=== PATIENT | female | born 1970 | race Caucasian/White ===

== ENCOUNTER 2018-08-08 08:24 | Inpatient (IN) | payer SELFPAY ==
[2018-08-08] MEDS ORDERED: Ibuprofen 800 MG TAB ONE (09:37)
[2018-08-08] MEDS ORDERED: Ondansetron PF 4 MG/2 ML Vial ONE (09:37)
[2018-08-08 10:17] LABS: Bilirubin Negative (Negative); Blood, Urine Large (Negative); Clarity TURBID (Clear); Glucose, Urine (Dipstick) >=1000 mg/dL (Negative); Leukocyte Large (Negative); Nitrite Positive (Negative); Protein, Urine (Dipstick) 30 mg/dL (Neg-Trace); Specific Gravity, Urine 1.011 (1.002-1.036); Urobilinogen 0.2 mg/dL (0.2-1.0)
[2018-08-08 10:18] LABS: Hyaline Casts/LPF 4-6 HYALINE CAST LPF (0-3 Hyaline); Pathc Cast-AUWi Flag 1.57 (0-2.49); Squamous Epithelial 0-3 HPF (0-3)
[2018-08-08 10:24] LABS: Yeast-AUWi Flag 44.5 (0-25.0)
[2018-08-08 10:33] LABS: ALT (SGPT) 13 U/L (8-55); AST (SGOT) 11 U/L (5-34); Alkaline Phosphatase 123 U/L (40-150); Anion Gap 15 mmol/L (10-20); BUN (Urea Nitrogen) 19 mg/dL (7.0-18.7); Bilirubin, Total 0.9 mg/dL (0.2-1.2); Calc. Creatinine Clearance 0 mL/min (70-130); Calcium 9.1 mg/dL (7.8-10.44); Carbon Dioxide 27 mmol/L (22-29); Chloride 92 mmol/L (98-107); Estimated GFR-MDRD 19; Globulin 4.6 g/dL (2.4-3.5); Lipase 22 U/L (8-78); Protein, Total 7.6 g/dL (6.0-8.3); Sodium 131 mmol/L (136-145)
[2018-08-08 10:37] LABS: Hemoglobin 11.6 g/dL (12.0-16.0); Mean Corpuscular HGB CONC 31.8 g/dL (32.0-36.0); Mean Corpuscular Hemoglobin 27.4 pg (27.0-31.0); Mean Corpuscular Volume 86.2 fL (78.0-98.0); Platelet Count 238 thou/uL (130-400); RBC Distribution Width 12.3 % (11.5-14.5); Red Blood Cell (RBC) Count 4.23 mill/uL (4.20-5.40); White Blood Cell (WBC) Count 22.2 thou/uL (4.8-10.8)
[2018-08-08 10:38] LABS: Glucose 586 mg/dL (70-105); Potassium 2.8 mmol/L (3.5-5.1)
[2018-08-08 10:44] LABS: RBC/HPF 0-3 HPF (0-3)
[2018-08-08 10:45] LABS: Bacteria/HPF 4+ HPF (None Seen); Yeast-All Forms None Seen HPF (None Seen)
[2018-08-08] MEDS ORDERED: ISOVUE-370 76%-LOCM 1 ML ONE (10:48)
[2018-08-08 10:53] LABS: Band 18 % (5-11); Eosinophils 1 % (0-10); Lymphocytes 4 % (21-51); MDiff Complete? YES; Neutrophil 77 % (42-75)
--- NOTE | 2018-08-08 10:57 | CT ---
ABDOMEN CT WITH CONTRAST PELVIC CT WITH CONTRAST: Date: 08/08/18 HISTORY: Abdominal pain. Nausea and vomiting. Right upper quadrant pain. COMPARISON: None. FINDINGS: CT ABDOMEN: Lung bases are clear. Heart size is normal. No significant pericardial fluid. Visualized aorta has a normal caliber. No periaortic fat stranding. Intra and extrahepatic portal vein is patent. The liver, spleen, pancreas, and adrenal glands appear to be unremarkable. There is CT evidence of cholelithiasis without evidence of cholecystitis. There are enlarged left periaortic lymph nodes. Kettle Skimmer enlarged left periaortic lymph node me asures 1.3 x 1.1 cm. There is an enlarged aortocaval lymph node measuring 1.0 x 1.4 cm. There is a pe ricaval lymph node that is also enlarged. No gastrohepatic, retrocrural, or periportal lymphadenopathy. No mesenteric mass, lymphadenopathy, free air, or free fluid. There is symmetric enhancement of the kidneys. There is severe bilateral hydronephrosis and hydrouret er. Limited evaluation of the alimentary canal by lack of oral contrast. There is mucosal thickening invo lving proximal jejunal loops, which are slightly prominent. The mid and distal jejunal loops, as well as loops of the ileum, are unremarkable. Normal caliber appendix. Ileocecal junction is normal. Visu alized colon is grossly unremarkable. CT PELVIS: Distended urinary bladder with bladder mucosal prominence. Trace amount of free fluid in the pelvis i s suggested. Uterus is surgically absent. No pelvic mass, lymphadenopathy, or free air. IMPRESSION: 1. Enlarged retroperitoneal lymph nodes as described above. 2. Cholelithiasis without evidence of cholecystitis. 3. Severe bilateral hydronephrosis and hydroureter. 4. Distended urinary bladder with mucosal prominence. Correlate for neoplasm versus cystitis. POS: [facility]
[2018-08-08] MEDS ORDERED: Potassium Chloride 20 MEQ TAB ONE (11:22)
[2018-08-08] MEDS ORDERED: cefTRIAXone\\ROCEPHIN 2 GM VIAL ONE (11:22)
[2018-08-08] MEDS ORDERED: Potassium Chloride 10 MEQ in Premix Bag 1 BAG IVPB SCH (11:45)
[2018-08-08] MEDS ORDERED: Enoxaparin Sodium 60 MG/0.6 ML SYRINGE ONE (12:18)
[2018-08-08] MEDS ORDERED: Dextrose 5% in Water 1,000 ML IV PRN (13:29)
[2018-08-08] MEDS ORDERED: Acetaminophen 325 MG TAB PO PRN (13:29)
[2018-08-08] MEDS ORDERED: Zolpidem Tartrate 5 MG TAB PO PRN (13:29)
[2018-08-08] MEDS ORDERED: Dextrose 50% Abboject 50 ML SYRINGE SLOW IVP PRN (13:29)
[2018-08-08 15:04] VITALS: BMI 33.8
--- NOTE | 2018-08-08 15:55 | HP ---
PRIMARY CARE PROVIDER: Dr. Anna Munson. HISTORY OF PRESENT ILLNESS: The patient presents to the hospital. States she has been sick for a week for awhile 6 weeks plus, started with anorexia and then nausea, then nausea and vomiting off and on for the past 3 weeks. She states her weight is down 20 pounds. She has had fever, chills, and sweats. Also, known with temperatures as high as 103 plus or minus. She has chronic pain in her back, but now has pain in her right abdomen. PAST MEDICAL HISTORY: Pertinent for diabetes mellitus type 2, insulin dependent; hypertension; dyslipidemia; COPD. She had a cervical cancer in 2009 with radical hysterectomy. She has had chemotherapy and radiation therapy. She has had small-bowel obstruction subsequent to that, she has had three C-sections in the past. CURRENT MEDICATIONS: 1. Humalog with meals, long-acting insulin, she does not know the name, but takes 55 units in the morning. 2. She has albuterol nebulizer and albuterol rescue inhaler. 3. She takes Lipitor 20 mg a day. 4. Gabapentin 300 mg twice a day. 5. Losartan 50 mg a day. 6. Metformin 500 mg twice a day. 7. Fluticasone nasal spray as needed. 8. She has angioedema with lisinopril. FAMILY HISTORY: Father of cirrhosis of the liver. Mother and maternal grandmother had coronary artery disease. Her mother and aunts have diabetes mellitus. SOCIAL HISTORY: She is , distantly, no formal separation. She smoked 3 packs a day until the last short while and she has been trying to quit. Drinks no alcohol. Full code status. Mother, Lucretia Hernandez, is next of kin. REVIEW OF SYSTEMS: HEAD: Occasional headaches. Occasional lightheadedness. No fainting. EYES: Blurred vision with high blood sugar. No double vision or flashing lights. EARS, NOSE, AND THROAT: No ear pain or drainage. No nasal bleeding. No trouble swallowing. CARDIAC: Occasional palpitations. No chest pain, dyspnea on exertion, orthopnea, or paroxysmal nocturnal dyspnea. RESPIRATIONS: She does have occasional wheeze and shortness of breath, for which she uses albuterol. No cough. GASTROINTESTINAL: Nausea and vomiting with present illness. Abdominal discomfort on the right with present illness. No diarrhea or constipation. GENITOURINARY: She has dysuria, frequency, and incontinence, is currently wearing Depends. MUSCULOSKELETAL: No pain or swelling in her legs. NEUROLOGICAL: No strokes, seizures, or focal weakness. PSYCHIATRIC: No anxiety or depression. SKIN: No bruising, bleeding, or rash. HEME/LYMPH: No tender, swollen lymph nodes in the axilla, inguinal, or cervical area. PHYSICAL EXAMINATION: VITAL SIGNS: Her temperature in the emergency room was 98.3. She rates her pain is 6 to 8. O2 saturation was 97 to 98 on room air, blood pressure 155/95, pulse 74, and respirations 18. HEAD, EYES, EARS, NOSE, AND THROAT: Revealed pupils equal, round, and reactive to light. Extraocular movements are intact. Sclerae are white. Tympanic membranes are clear. Nose is clear. Throat is clear. Oral mucous membranes are wet. NECK: Supple without jugular venous distention, adenopathy, or thyromegaly. CHEST: Clear to auscultation and percussion. HEART: Had a regular rate and rhythm. First and second heart sounds are clear. There are no appreciated murmurs or gallops. ABDOMEN: Soft. Bowel sounds are normal. She has tenderness to palpation on the right lower side with no guarding or rebound. No bruits. EXTREMITIES: Reveal no cyanosis, clubbing, or edema. PULSES: Carotid, radial, femoral, and dorsalis pedis pulses are intact. SKIN: Warm and dry without bruises or rash. HEME/LYMPH: No tender or swollen lymph nodes in the axilla, inguinal, or cervical area. NEUROLOGICAL: Cranial nerves 2 through 12 are intact. Deep tendon reflexes are symmetric. IMAGING STUDIES: EKG, regular sinus rhythm. No acute ST-T abnormality, within normal limits, reviewed by me. Abdominal CT reveals cholelithiasis without cholecystitis. There are enlarged lymph nodes in the periaortic area. There is bilateral hydronephrosis and a distended urinary bladder with mucosal prominence. The uterus is surgically absent. LABORATORY DATA: UA; positive nitrite, positive esterase, too many to count white cells. Chemistries; sodium 131, potassium 2.8, chloride 92, BUN 19, creatinine 2.65, and glucose 586. CBC; 22,000 white count with 18 bands, hemoglobin 11.6, and platelet count 238,000. ADMITTING DIAGNOSES: 1. Sepsis syndrome, probable origin urinary tract. 2. Bilateral hydronephrosis. 3. Cervical cancer, post surgery, radiation therapy, and chemotherapy, 8 years ago. 4. Diabetes mellitus, type 2. 5. Hypertension. 6. Chronic obstructive pulmonary disease. 7. Tobacco abuse. PLAN: 1. Blood cultures and urine cultures. 2. IV antibiotics with Rocephin. 3. Sliding scale with Accu-Cheks a.c. and h.s. Aggressive sliding scale. We will also start 25 units of Levemir in the a.m. Dr. Ng, Urology has been consulted by the Emergency Department for hydronephrosis that will be continued. Selected home medicines will be continued. Her metformin and ARB will be discontinued. The patient is complicated, will be in the hospital several days. There is a reasonably likelihood this is a recrudescence of her cervical CA causing bilateral hydronephrosis or, of course, could be scarring from a combination of radiation therapy and surgery. This will have to be determined in the future. Job ID: [id number]
[2018-08-08] MEDS: HumaLOG 300 UNITS/3 ML VIAL SC PRN ×2 (17:26→20:40)
[2018-08-08] MEDS: HYDROcodone/Acetaminophen 7.5/325 mg Tablet PO PRN (17:32)
[2018-08-08] MEDS: Sodium Chloride 0.9% 1,000 ML IV SCH (17:34)
[2018-08-08] MEDS: Ondansetron PF 4 MG/2 ML Vial IVP PRN (20:39)
[2018-08-08 21:14] LABS: ALT (SGPT) 13 U/L (8-55); AST (SGOT) 14 U/L (5-34); Albumin 2.9 g/dL (3.5-5.0); Alkaline Phosphatase 137 U/L (40-150); Anion Gap 12 mmol/L (10-20); BUN (Urea Nitrogen) 17 mg/dL (7.0-18.7); Bilirubin, Total 0.7 mg/dL (0.2-1.2); Calc. Creatinine Clearance 44 mL/min (70-130); Calcium 8.8 mg/dL (7.8-10.44); Carbon Dioxide 27 mmol/L (22-29); Chloride 99 mmol/L (98-107); Estimated GFR-MDRD 22; Globulin 4.5 g/dL (2.4-3.5); Glucose 337 mg/dL (70-105); Magnesium 1.4 mg/dL (1.6-2.6); Protein, Total 7.4 g/dL (6.0-8.3); Sodium 135 mmol/L (136-145)
[2018-08-08 21:16] LABS: Potassium 2.7 mmol/L (3.5-5.1)
[2018-08-08] MEDS ORDERED: Potassium Chloride 40 MEQ in Sodium Chloride 0.9% 500 ML IVPB SCH (21:45)
[2018-08-09] MEDS: Sodium Chloride 0.9% 1,000 ML IV SCH ×3 (01:10→19:10)
[2018-08-09] MEDS: HYDROcodone/Acetaminophen 7.5/325 mg Tablet PO PRN ×2 (04:41→18:25)
[2018-08-09] MEDS: Ondansetron PF 4 MG/2 ML Vial IVP PRN (04:42)
[2018-08-09 05:55] LABS: Anion Gap 14 mmol/L (10-20); BUN (Urea Nitrogen) 15 mg/dL (7.0-18.7); Calc. Creatinine Clearance 51 mL/min (70-130); Calcium 8.3 mg/dL (7.8-10.44); Carbon Dioxide 23 mmol/L (22-29); Chloride 103 mmol/L (98-107); Estimated GFR-MDRD 25; Glucose 276 mg/dL (70-105); Sodium 137 mmol/L (136-145)
[2018-08-09 06:29] LABS: Band 21 % (5-11); Eosinophils 3 % (0-10); Hemoglobin 10.5 g/dL (12.0-16.0); Lymphocytes 4 % (21-51); MDiff Complete? YES; Mean Corpuscular HGB CONC 33.2 g/dL (32.0-36.0); Mean Corpuscular Hemoglobin 28.9 pg (27.0-31.0); Mean Corpuscular Volume 87.1 fL (78.0-98.0); Mean Platelet Volume 9.1 fL (7.4-10.4); Monocytes 4 % (0-10); Neutrophil 68 % (42-75); Platelet Count 200 thou/uL (130-400); RBC Distribution Width 12.5 % (11.5-14.5); Red Blood Cell (RBC) Count 3.65 mill/uL (4.20-5.40); White Blood Cell (WBC) Count 23.5 thou/uL (4.8-10.8)
--- NOTE | 2018-08-09 07:39 | CON ---
DATE OF CONSULTATION: 08/08/2018 REASON FOR CONSULTATION: 1. Bilateral hydronephrosis. 2. Bilateral hydroureter. 3. Full bladder. 4. History of continuos urinary incontinence. 5. History of cervical cancer, status post hysterectomy with lymph node dissection including a positive left inguinal lymph node around 2009. 6. Cigarette smoking, not in remission with hematuria. 7. Right upper quadrant pain with current gallstones. HISTORY OF PRESENT ILLNESS: Ms. 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 She has had many months of difficulties with urinary incontinence. The patient moved here from the [facility]. She apparently undergone some type of urologic evaluation including urodynamics with concern for her urinary incontinence. The patient did not have any type of surgical intervention as she lost her job prior to being scheduled for surgery for that incontinence issue. On this presentation, the patient presents to the hospital with several days of not feeling well. She reports several months of anorexia, particularly after eating fatty food. This has been going on for 6 to 8 weeks. The patient reports nausea and vomiting, which has been relatively severe over the last 3 weeks. The patient reports a loss of weight of about 20 pounds. The patient is reporting acutely over the last few days, a fever and chills as well as sweats. The patient has a number of chronic pain conditions relating to her history of cervical cancer for which she underwent an extensive resection years ago and the patient had subsequent chemo and radiation therapy as well. PAST SURGICAL HISTORY: 1. Status post hysterectomy and extended lymph node dissection via Pfannenstiel incision. 2. Lumbar spine surgery. PAST MEDICAL HISTORY: 1. Diabetes mellitus, type 2, insulin dependent. 2. Hypertension. 3. Dyslipidemia. 4. COPD with current cigarette smoking. The patient was a 3-pack per day smoker, when she arrived in the [facility]. GYNECOLOGIC HISTORY: The patient has had 3 C-sections in the past, one child of inborn errors of metabolism at age 5 months. She has 2 surviving sons. SOCIAL HISTORY: The patient is a current cigarette smoker, 3 packs per day until recently. The patient is down to 4 cigarettes per day by her report. She does not drink alcohol. The patient's mother, Dasia Hernandez, who resides in [place] is her next of kin. She has no local support group. The patient is , but distantly. REVIEW OF SYSTEMS: CONSTITUTIONAL: The patient reports a weight loss of about 20 pounds. HEAD, EARS, NOSE, AND THROAT: The patient reports headaches. EYES: Negative for double vision. CARDIAC: The patient reports occasional palpitations. PULMONARY: The patient does have wheezing and history of COPD. She does use albuterol for that. She has a current cough. GASTROINTESTINAL: The patient is noting at least 6 to 8 weeks of nausea and vomiting, particularly with fatty foods. She reports weight loss of about 20 pounds. She reports right upper quadrant discomfort associated with that. GENITOURINARY: The patient has at least 8 to 10 months of continuous urinary incontinence history. She reports no significant lateralizing symptoms except for the right anterior upper abdominal pain symptoms, mostly associated with dietary intake of fat. She had extensive urologic evaluation in the [facility], but did not undergo surgical intervention due to loss of her job. MUSCULOSKELETAL: No reports of pain or swelling in the legs. NEUROLOGIC: Negative for cranial nerve issues, strokes, seizure, and focal weakness. PSYCHIATRIC: The patient reports some situational depression related to her condition. SKIN: Negative. HEMATOLOGIC AND LYMPH NODES: The patient has a report of previous node positive cervical cancer disease. PHYSICAL EXAMINATION: VITAL SIGNS: The patient has been afebrile throughout the current hospitalization, but reports she may have had a fever at home, current temperature 99.5; pulse 90; respirations 16; and O2 saturation 94% on room air, O2 saturation was relatively stable throughout the day today; the patient is hypertensive with current blood pressure of 163/78. HEAD, EARS, EYES, NOSE, AND THROAT: Extraocular movements are intact. Sclerae are anicteric. Oropharynx is clear. NECK: Supple. LUNGS: Clear to ausculation bilaterally with wheezing heard on the right side. This does not clear significantly with cough. There are COPD-type changes heard bilaterally. ABDOMEN: Predominantly soft and nontender. The patient does relate right upper quadrant discomfort. She notes that she is also nauseated. The lower abdomen is noticeable for a Pfannenstiel type surgical incisional scar, which is transverse. This is well healed. No evidence of hernia along that. PELVIS: Pelvic examination is deferred. Right now, she does have an indwelling Coronel catheter, which was placed by nursing staff at my direction after review of her CT scan showing a full bladder with associated bilateral hydronephrosis. Coronel catheter placement today returned 700 mL of immediate urine production. In the postvoid state, the patient by bladder scan had about 300 mL of postvoid residual; however, this turned out to be about 700 on actual catheter placement. Since catheter placement, the patient has had quite productive urine output. In span of 30 minutes during direct observation, she made over 300 mL of urine output. This places the patient at risk for possible postobstructive diuresis. EXTREMITIES: Appear within normal limits. LABORATORY STUDIES: Admission white count 22,200. There is a left shift with 77% neutrophils. Hemoglobin is 11.6 with a hematocrit of 36.5. Serum chemistry showed the patient with marked hypokalemia with potassium of 2.8, which is critically low. Serum glucose elevated at 586, down to 505 at 4 p.m. after some insulin therapy. Serum albumin low at 3.0. Urinalysis today showed the patient with greater than 1000 mg of glucose per liter, trace ketones present, large amount of blood, and urine positive for nitrite. There are greater than 50 white cells per high-powered field and 0 to 3 red cells per high-powered field. No urinary yeast was seen, but 4+ urinary bacteria was present. RADIOLOGIC STUDIES: CT scan of the abdomen and pelvis demonstrates bilateral hydronephrosis with hydroureter extending bilaterally. This extends nearly to the level of the bladder on both sides. There is no evidence of obstructing calculus. The dilation of the collecting system appears to be relatively chronic suggesting a long-term process lasting months. The bladder wall has a degree of relative thickening per the degree of fullness observed suggesting some type of bladder lining process perhaps cystitis. The patient's history of cigarette smoking is also noted in relation to this. Noted by the radiologist at the time of reading is presence of some enlarged lymph nodes. The patient has lymph nodes in the periaortic area on the left, measuring 1.3 x 1.1 cm and there is an enlarged aortocaval lymph node measuring 1.0 x 1.4 cm. There are also pericaval lymph nodes, which were also enlarged. ASSESSMENT AND PLAN: 1. Apparent urinary tract infection with presumed sepsis-type presentation. Appropriate treatment of this patient is Coronel catheter drainage at the present time with IV antibiotics. Broad-spectrum antibiotics to start and more focused therapy as cultures results become available. The urinary tract infection on this patient's case is secondary to bladder outlet obstruction. Plan will be for Coronel catheter management for initial evaluation of the patient at the present time to further evaluate her upper tract, which is also dilated. I would recommend a noncontrast CT scan to be performed in the morning as the patient is drained overnight. 2. Postobstructive diuresis in process. This is secondary to relief of outlet obstruction by Coronel catheter. The patient's electrolytes need to be followed including potassium, which appears low on initial presentation and magnesium levels. Appropriate electrolyte management and fluid resuscitation are of concern. 3. History of cervical cancer, status post hysterectomy with history of node positive disease in the past and currently enlarged lymph nodes as observed on CT scan. This patient would probably benefit from Mineswe[facility] Officer-Oncology followup. In-hospital assessment may also be beneficial. 4. Overflow urinary incontinence. This is secondary to urethral obstruction. Catheter management as appropriate. 5. Chronic obstructive pulmonary disease. The patient does have a 3-pack per day cigarette smoking habit. Current chronic obstructive pulmonary disease management should be continued. Cigarette smoking cessation is recommended. The patient's history of chronic obstructive pulmonary disease and heavy cigarette smoking may relate to bladder wall thickening as observed on CT scan, although I think acute infection is a more likely cause at the present time. The patient probably would benefit after treatment of her urinary tract infection with a followup outpatient cystoscopic assessment. 6. Right upper quadrant pain associated with consumption of fatty foods and current gallstones as observed on CT scan. General Surgery evaluation for cholestatic obstruction or infected gallstones would be relative in this patient's case. The patient reports right upper quadrant pain without focal back pain, suggesting that this problem originates in the gallbladder or liver. TIME SPENT: Over 80 minutes of initial consultation/assessment time was spent on evaluation of this patient today, [id number]. Job ID: [id number]
--- NOTE | 2018-08-09 07:44 | CT ---
CT OF THE ABDOMEN AND PELVIS WITHOUT IV CONTRAST: INDICATION: History of bilateral hydronephrosis after catheter placement. COMPARISON: CT of the abdomen and pelvis with contrast dated 08/08/2018 performed at 10:07 a.m. FINDINGS: There is some residual contrast enhancement involving the renal parenchyma from the prior IV contrast administration. There is contrast present within the renal collecting system consistent with excret ion. There is improvement of the bilateral hydronephrosis and hydroureter, now moderate in severity. There has been decompression of the bladder. There is wall thickening involving the bladder. Unopacified large and small bowel appear within normal limits. No drainable fluid collection is evid ent. There are scattered vascular calcifications. Lung bases are clear. Unopacified liver, spleen, pancreas, and adrenal glands appear within normal limits. There are some layered stones within the gallbladder. Mildly prominent varicosities seen within the left aspect of the retroperitoneum adjacent to the left kidney are stable. There are scattered degenerative and ost eoarthritic changes. IMPRESSION: 1. Interval placement of a Coronel catheter decompressing the bladder. There is improvement of the bi lateral hydronephrosis and hydroureter. There is moderate bilateral hydronephrosis and hydroureter r emaining. 2. Wall thickening involving the bladder may reflect a component of cystitis. Recommend correlation with the clinical exam. 3. Cholelithiasis. 4. Other stable chronic findings as above. POS: [facility]
[2018-08-09] MEDS ORDERED: Potassium Chloride 20 MEQ TAB PO SCH (08:15)
[2018-08-09] MEDS ORDERED: Insulin Glargine 25 UNITS in Pre-Filled Syringe 1 EACH SC SCH (09:00)
[2018-08-09] MEDS: Enoxaparin Sodium 30 MG/0.3 ML SYRINGE SC SCH (09:11)
[2018-08-09] MEDS ORDERED: Magnesium Sulfate 4 GM in Sodium Chloride 0.9% 250 ML 250 ML IVPB SCH (11:15)
[2018-08-09] MEDS ORDERED: Acetaminophen 1,000 MG in Premix Bag 1 BAG IVPB PRN (11:55)
[2018-08-09] MEDS ORDERED: Acetaminophen 1,000 MG in Premix Bag 1 BAG IVPB SCH (12:00)
[2018-08-09] MEDS ORDERED: Ketorolac Tromethamine 30 MG/ML VIAL IVP SCH (12:00)
[2018-08-09] MEDS ORDERED: Scopolamine 1.5 mg/72 hour Patch TD SCH (12:30)
[2018-08-09] MEDS ORDERED: Metoclopramide HCl 10 MG/2 ML VIAL ONE (13:08)
[2018-08-09] MEDS ORDERED: Ketorolac Tromethamine 30 MG/ML VIAL ONE (13:08)
[2018-08-09] MEDS ORDERED: Lidocaine 1% PF 5 ML VIAL ONE (13:08)
[2018-08-09] MEDS ORDERED: Ondansetron PF 4 MG/2 ML Vial ONE (13:08)
[2018-08-09] MEDS ORDERED: Glycopyrrolate 0.2 MG/ML 5 ML SYRINGE ONE (13:08)
[2018-08-09] MEDS ORDERED: PROPOFOL 200 MG/20 ML VIAL ONE (13:08)
--- NOTE | 2018-08-09 13:15 | HP ---
HISTORY OF PRESENT ILLNESS: Dusty Jorgensen is a 47-year-old female, admitted to the Medical Service on 08/08/2018. She was just not feeling well. She has been having right upper quadrant pain, nausea, vomiting, and anorexia with diminished weight. She has been having fevers to 103 degrees. In this hospitalization, she was found to have hydronephrosis and urinary retention. A Coronel catheter was placed and this improved her hydronephrosis. Dr. Octavio Ng has seen her and she has a Coronel catheter in place now. Her urine cultures reveal gram-negative rods. Blood cultures negative to date. She has complained of persistent right upper quadrant pain and nausea. CAT scan reveals gallstones, normal bile duct caliber. Liver function tests were normal. She has been having episodic right upper quadrant pain for several weeks. ALLERGIES: LISINOPRIL. MEDICATIONS: At home, she takes: 1. Hydrocodone p.r.n. pain. 2. Humalog insulin 14 units subcu a.c. 3. Insulin 55 units subcu daily. 4. Albuterol inhalers. 5. Metformin 500 b.i.d. 6. Losartan 50 mg daily. 7. Gabapentin 100 mg b.i.d. 8. Atorvastatin 10 mg at bedtime. SOCIAL HISTORY: Tobacco, 4 to 6 cigarettes a day. Alcohol, socially. The patient lives alone. Her parents in [place]. She has recently moved from [place]. She does not have any local support. PAST SURGICAL HISTORY: The patient has had a hysterectomy; after, she has had a radiation therapy for cervical cancer. She has had a lymph node dissection. Lumbar spine surgery. PAST MEDICAL HISTORY: Diabetes mellitus type 2, insulin dependent; metabolic syndrome; obesity; hypertension; dyslipidemia; COPD. PHYSICAL EXAMINATION: VITAL SIGNS: Height 5 feet and 7 inches, weight 216 pounds, and BMI 33. Temperature 98.2, pulse 76, blood pressure 148/83. HEAD, EARS, EYES, NOSE AND THROAT: Unremarkable. Sclerae not icteric. SKIN: No jaundice. LUNGS: Clear to auscultation. No wheezing. CARDIAC: Regular rate and rhythm without murmur or gallop. ABDOMEN: Soft. Tenderness in right upper quadrant. No guarding. Positive Angulo's. EXTREMITIES: Unremarkable. LABORATORY DATA: Liver function tests are normal. White count 23, hemoglobin 10.5. Sodium 137; potassium 3.0; creatinine 2.09, down from 2.4 yesterday; BUN 15. GFR 25, improved from 22 yesterday. Accu-Cheks 287 and 367. ASSESSMENT AND PLAN: 1. Cholecystitis and cholelithiasis. She is on appropriate antibiotics. I would recommend laparoscopic video cholecystectomy. Risks of infection, bleeding, reoperation, visceral and biliary injury discussed. Questions answered. 2. Metabolic syndrome, obesity. 3. Diabetes mellitus. 4. Hypertension. 5. Urinary retention. 6. History of cervical cancer, radiation and hysterectomy. 7. History of lumbar surgery. Job ID: [id number]
[2018-08-09] MEDS ORDERED: Bupivacaine HCl 0.5%/Epinephrine 1:200,000/PF 30 ml Vial ONE (13:44)
[2018-08-09] MEDS ORDERED: Midazolam HCl 2 mg/2 ml Vial ONE (13:45)
[2018-08-09] MEDS ORDERED: Fentanyl 100 MCG/2 ML VIAL ONE ×4 (13:49→16:03)
[2018-08-09] MEDS ORDERED: Insulin Regular 300 UNITS/3 ML VIAL ONE (13:51)
--- NOTE | 2018-08-09 13:57 | PDOC.PN ---
- Subjective Encounter Start Date: 08/09/18 Encounter Start Time: 09:15 Doing ok. Tolerating Coronel. Says she has not had follow up on her prior cancer in three years. Her care was in [facility] area. Recently moved here. No PCP here. Has had bladder outflow issues in the past and was told then she needed a bladder lift, but did not get it. - Objective Resuscitation Status - Order Detail: 08/08/18 13:25 Resuscitation Status Routine Resuscitation Status: FULL: Full Resuscitation Vital Signs & Weight: Vital Signs (12 hours) Temp Pulse Resp BP Pulse Ox 08/09/18 12:00 98.3 F 84 16 133/80 95 08/09/18 08:00 98.2 F 76 18 148/83 H 96 08/09/18 04:29 98.2 F 78 16 162/85 H 97 Weight Weight 216 lb 1 oz I&O: 08/08/18 08/09/18 08/10/18 06:59 06:59 06:59 Intake Total 1550 Output Total 2625 Balance -1075 Result Diagrams: 08/09/18 04:58 08/09/18 04:58 Additional Labs: Accuchecks 08/09/18 08/09/18 08/08/18 11:52 04:34 19:59 POC Glucose 331 H 287 H 367 H 08/08/18 16:02 POC Glucose 505 H Phys Exam - Physical Examination Constitutional: NAD Respiratory: no wheezing, no rales, no rhonchi, clear to auscultation bilateral Cardiovascular: RRR, no significant murmur Gastrointestinal: soft, no distention, positive bowel sounds RUQ TTP with guarding. Musculoskeletal: no edema Psychiatric: normal affect, A&O x 3 Dx/Plan (1) Hydronephrosis Code(s): N13.30 - UNSPECIFIED HYDRONEPHROSIS Status: Acute (2) Bladder outlet obstruction Code(s): N32.0 - BLADDER-NECK OBSTRUCTION Status: Acute (3) UTI (urinary tract infection) Status: Acute (4) Hx of ovarian cancer Status: Acute (5) RUQ abdominal pain Code(s): R10.11 - RIGHT UPPER QUADRANT PAIN Status: Acute (6) Cholelithiasis Code(s): K80.20 - CALCULUS OF GALLBLADDER W/O CHOLECYSTITIS W/O OBSTRUCTION Status: Acute (7) Hypokalemia Code(s): E87.6 - HYPOKALEMIA Status: Acute (8) Hypomagnesemia Code(s): E83.42 - HYPOMAGNESEMIA Status: Acute - Plan * Drained well with Coronel. Urology following. Franklin largely decompressed. * Post-obstructive diuresis. Not severe. Monitoring/managing lytes. * RUQ pain with stones. General surgery consulted. * Continue Rocephin and follow cultures.
[2018-08-09] MEDS ORDERED: Magnesium Sulfate 3 GM in Sodium Chloride 0.9% 100 ML IVPB SCH (14:30)
[2018-08-09] MEDS ORDERED: Meperidine HCl/PF 25 MG/ML VIAL SLOW IVP PRN (14:45)
[2018-08-09] MEDS ORDERED: Ketorolac Tromethamine 30 MG/ML VIAL IVP PRN (14:45)
[2018-08-09] MEDS ORDERED: HYDROmorphone 2 MG/ML VIAL SLOW IVP PRN (14:45)
[2018-08-09] MEDS ORDERED: Promethazine HCl 25 MG/ML VIAL SLOW IVP PRN (14:45)
[2018-08-09] MEDS ORDERED: Promethazine HCl 25 MG/ML VIAL IM PRN (14:45)
[2018-08-09] MEDS ORDERED: Acetaminophen 500 MG TAB PO PRN (15:09)
[2018-08-09] MEDS ORDERED: traMADol HCl 50 MG TAB PO PRN ×2 (15:09)
[2018-08-09] MEDS ORDERED: Ibuprofen 600 MG TAB PO PRN (15:09)
[2018-08-09] MEDS ORDERED: Promethazine HCl 25 MG/ML VIAL ONE (15:11)
[2018-08-09] MEDS ORDERED: HYDROmorphone 2 MG/ML VIAL ONE (16:16)
[2018-08-09] MEDS: cefTRIAXone\\ROCEPHIN 2 GM in Sodium Chloride 0.9% 100 ML IVPB SCH (17:52)
[2018-08-09] MEDS: HumaLOG 300 UNITS/3 ML VIAL SC PRN ×2 (18:21→21:04)
[2018-08-09 19:55] LABS: Anion Gap 18 mmol/L (10-20); Chloride 104 mmol/L (98-107); Potassium 3.2 mmol/L (3.5-5.1); Sodium 140 mmol/L (136-145)
[2018-08-09 20:05] LABS: ALT (SGPT) 21 U/L (8-55); AST (SGOT) 36 U/L (5-34); Albumin 2.7 g/dL (3.5-5.0); Alkaline Phosphatase 136 U/L (40-150); BUN (Urea Nitrogen) 16 mg/dL (7.0-18.7); Bilirubin, Total 0.4 mg/dL (0.2-1.2); Calc. Creatinine Clearance 49 mL/min (70-130); Calcium 8.6 mg/dL (7.8-10.44); Carbon Dioxide 21 mmol/L (22-29); Estimated GFR-MDRD 24; Globulin 4.4 g/dL (2.4-3.5); Glucose 334 mg/dL (70-105); Protein, Total 7.1 g/dL (6.0-8.3)
--- NOTE | 2018-08-09 20:56 | OP ---
DATE OF PROCEDURE: 08/09/2018 PREOPERATIVE DIAGNOSES: Chronic cholecystitis, cholelithiasis, urinary tract obstruction, urethral with Coronel followed by Dr. Ng, Urology, and urinary tract infection. POSTOPERATIVE DIAGNOSES: Chronic cholecystitis, cholelithiasis, urinary tract obstruction, urethral with Coronel followed by Dr. Ng, Urology, and urinary tract infection. PROCEDURES PERFORMED: Laparoscopic video cholecystectomy. Note, the gallbladder was not acutely inflamed. No antibiotics are needed from a biliary standpoint. The patient be discharged home anytime. ANESTHESIA: General, local 0.5% Marcaine with epinephrine 30 mL. DESCRIPTION OF PROCEDURE: The patient was taken to the operating room. Under general anesthesia abdomen was prepared with ChloraPrep and draped in routine fashion. Local anesthetic 0.5% Marcaine with epinephrine was infiltrated in the skin and subcutaneous tissue about each port site. Supraumbilical incision was made (morbid obesity and dependent pannus) and pneumoperitoneum to 15 mmHg was obtained with a Veress needle, replaced with a 5 port and laparoscope was inserted. A right subxiphoid incision was made, and 11 port was placed. A right subcostal incision was made, midclavicular and anterior axillary lines, and 5 port was placed. Liver was noted to be fatty. The gallbladder was not acutely inflamed. There was no purulence. Fundus was grasped at the cephalad laterally. Cystic artery and duct dissected free. Critical view obtained. Cystic artery and duct double clipped proximally and divided. Gallbladder dissected free from liver bed, obtained good hemostasis prior to division of the final . Gallbladder and contents were removed, submitted to Pathology. Good hemostasis ensured with cautery. The patient tolerated the procedure well. Job ID: [id number]
[2018-08-09] MEDS: Ketorolac Tromethamine 30 MG/ML VIAL IVP PRN (21:04)
[2018-08-10] MEDS: HYDROcodone/Acetaminophen 7.5/325 mg Tablet PO PRN ×3 (00:44→18:27)
[2018-08-10] MEDS: Ketorolac Tromethamine 30 MG/ML VIAL IVP PRN (03:21)
[2018-08-10] MEDS: Sodium Chloride 0.9% 1,000 ML IV SCH ×2 (04:24→15:53)
[2018-08-10] MEDS: HumaLOG 300 UNITS/3 ML VIAL SC PRN ×3 (05:39→21:36)
[2018-08-10 06:13] LABS: #Eosinphils 0.3 thou/uL (0.0-0.7); #Lymphocytes 0.7 thou/uL (1.20-3.40); #Monocytes 0.5 thou/uL (0.11-0.59); #Neutrophils 13.4 thou/uL (1.40-6.50); %Basophils 0.2 % (0.0-1.0); %Eosinophils 1.7 % (0.0-10.0); %Monocytes 3.1 % (0.0-10.0); Hemoglobin 9.6 g/dL (12.0-16.0); Mean Corpuscular HGB CONC 32.2 g/dL (32.0-36.0); Mean Corpuscular Volume 90.3 fL (78.0-98.0); Mean Platelet Volume 9.7 fL (7.4-10.4); Platelet Count 191 thou/uL (130-400); RBC Distribution Width 12.7 % (11.5-14.5); White Blood Cell (WBC) Count 14.9 thou/uL (4.8-10.8)
[2018-08-10 06:34] LABS: Anion Gap 14 mmol/L (10-20); BUN (Urea Nitrogen) 15 mg/dL (7.0-18.7); Calc. Creatinine Clearance 54 mL/min (70-130); Calcium 8.3 mg/dL (7.8-10.44); Carbon Dioxide 19 mmol/L (22-29); Chloride 105 mmol/L (98-107); Estimated GFR-MDRD 27; Glucose 322 mg/dL (70-105); Potassium 3.3 mmol/L (3.5-5.1); Sodium 135 mmol/L (136-145)
[2018-08-10] MEDS ORDERED: Potassium Chloride 20 MEQ TAB PO SCH (06:45)
[2018-08-10] MEDS: Polyethylene Glycol 3350 17 GM Packet PO SCH (08:06)
[2018-08-10] MEDS: Enoxaparin Sodium 30 MG/0.3 ML SYRINGE SC SCH (08:06)
[2018-08-10] MEDS: Insulin Glargine 30 UNITS in Pre-Filled Syringe 1 EACH SC SCH (10:29)
--- NOTE | 2018-08-10 11:30 | PRG ---
DATE OF SERVICE: SUBJECTIVE: Ms. Jorgensen is doing well today. She is tolerating her diet. OBJECTIVE: LUNGS: Clear to auscultation. CARDIAC: Regular rate and rhythm without murmur or gallop. ABDOMEN: Soft. Postoperative tenderness. Surgical wounds look good without problems. ASSESSMENT AND PLAN: Status post laparoscopic cholecystectomy. She should follow up in my office in 2 to 3 weeks as needed. Diet and activity as tolerated. No lifting restriction from a surgical standpoint. No more intravenous antibiotics are required. I will see her as needed in this hospitalization. Please call, if needed. Job ID: [id number]
--- NOTE | 2018-08-10 13:34 | PDOC.PN ---
- Subjective Encounter Start Date: 08/10/18 Encounter Start Time: 10:30 Doing ok. Says she is having some pain, but eating and passing gas. - Objective Resuscitation Status - Order Detail: 08/08/18 13:25 Resuscitation Status Routine Resuscitation Status: FULL: Full Resuscitation Vital Signs & Weight: Vital Signs (12 hours) Temp Pulse Resp BP BP Pulse Ox 08/10/18 11:00 97.6 F 82 18 141/84 H 96 08/10/18 08:00 99 08/10/18 07:37 97.7 F 71 18 144/80 H 99 08/10/18 04:00 97.8 F 70 20 128/75 Weight Admit Weight 216 lb 1 oz Weight 216 lb 1 oz I&O: 08/09/18 08/10/18 08/11/18 06:59 06:59 06:59 Intake Total 1550 3095 200 Output Total 2625 1875 Balance -1075 1220 200 Result Diagrams: 08/10/18 05:15 08/10/18 05:15 Additional Labs: Accuchecks 08/10/18 08/10/18 08/09/18 11:24 04:47 19:21 POC Glucose 301 H 338 H 364 H 08/09/18 08/09/18 17:29 15:11 POC Glucose 306 H 249 H Phys Exam - Physical Examination Constitutional: NAD Respiratory: no wheezing, no rales, no rhonchi Cardiovascular: RRR, no significant murmur Gastrointestinal: soft, no distention, positive bowel sounds Musculoskeletal: no edema Neurological: non-focal Psychiatric: normal affect, A&O x 3 Skin: normal turgor Dx/Plan (1) Urine retention Code(s): R33.9 - RETENTION OF URINE, UNSPECIFIED Status: Acute Comment: Resolved with Coronel catheter. UTI with Klebsiella. Discussed with Urology. Will plan on DC'ing the Coronel in am and watching for PVR's. If > 150, replace catheter and have her follow up with Urology as outpatient. If < 150, discharge without it. (2) Hydronephrosis Code(s): N13.30 - UNSPECIFIED HYDRONEPHROSIS Status: Resolved Comment: Resolved with bladder drainage. (3) UTI (urinary tract infection) Status: Acute Comment: Klebsiella. Highly sensitive. Change to PO Cipro. (4) History of cervical cancer Code(s): Z85.41 - PERSONAL HISTORY OF MALIGNANT NEOPLASM OF CERVIX UTERI Status: Acute Comment: Had hyst with LN dissection and LN involvement. Had chemo and XRT. No follow up in three years. (5) RUQ abdominal pain Code(s): R10.11 - RIGHT UPPER QUADRANT PAIN Status: Acute Comment: Had lap russell 08/09/18 (6) Cholelithiasis Code(s): K80.20 - CALCULUS OF GALLBLADDER W/O CHOLECYSTITIS W/O OBSTRUCTION Status: Acute Comment: S/P Lap Russell on 08/09/18. (7) Hypokalemia Code(s): E87.6 - HYPOKALEMIA Status: Acute Comment: Oral repletion. (8) Hypomagnesemia Code(s): E83.42 - HYPOMAGNESEMIA Status: Resolved - Plan * Convert to po abx today. Attempt to remove Coronel in am. * Anticipate discharge tomorrow.
[2018-08-10] MEDS: cefTRIAXone\\ROCEPHIN 2 GM in Sodium Chloride 0.9% 100 ML IVPB SCH (13:47)
--- NOTE | 2018-08-10 14:38 | EKG ---
Test Reason : Blood Pressure : / mmHG Vent. Rate : 091 BPM Atrial Rate : 091 BPM P-R Int : 138 ms QRS Dur : 090 ms QT Int : 394 ms P-R-T Axes : 054 051 025 degrees QTc Int : 484 ms Normal sinus rhythm Possible Left atrial enlargement Prolonged QT Abnormal ECG Confirmed by CAITIE GALLEGO D.O. ([id number]), editorial director JAE RALPH ([id number]) on 08/10/2018 2:37:57 PM Referred By: Confirmed By:CAITIE GALLEGO D.O.
[2018-08-10] MEDS: Ciprofloxacin 500 MG TAB PO SCH (20:00)
[2018-08-11] MEDS: HYDROcodone/Acetaminophen 7.5/325 mg Tablet PO PRN ×3 (00:06→10:24)
[2018-08-11] MEDS: Sodium Chloride 0.9% 1,000 ML IV SCH ×2 (00:07→10:24)
[2018-08-11] MEDS: Ciprofloxacin 500 MG TAB PO SCH (06:07)
[2018-08-11] MEDS: HumaLOG 300 UNITS/3 ML VIAL SC PRN (06:07)
[2018-08-11 07:50] LABS: #Eosinphils 0.9 thou/uL (0.0-0.7); #Lymphocytes 1.1 thou/uL (1.20-3.40); #Monocytes 0.6 thou/uL (0.11-0.59); %Eosinophils 5.6 % (0.0-10.0); %Lymphocytes 7.2 % (21.0-51.0); %Monocytes 3.6 % (0.0-10.0); %Neutrophils 83.5 % (42.0-75.0); Hemoglobin 10.3 g/dL (12.0-16.0); Mean Corpuscular HGB CONC 33.1 g/dL (32.0-36.0); Mean Corpuscular Hemoglobin 29.3 pg (27.0-31.0); Mean Corpuscular Volume 88.6 fL (78.0-98.0); Mean Platelet Volume 9.4 fL (7.4-10.4); Platelet Count 248 thou/uL (130-400); RBC Distribution Width 12.6 % (11.5-14.5); Red Blood Cell (RBC) Count 3.51 mill/uL (4.20-5.40); White Blood Cell (WBC) Count 15.5 thou/uL (4.8-10.8)
[2018-08-11 08:05] LABS: Anion Gap 12 mmol/L (10-20); BUN (Urea Nitrogen) 13 mg/dL (7.0-18.7); Calc. Creatinine Clearance 53 mL/min (70-130); Calcium 8.7 mg/dL (7.8-10.44); Carbon Dioxide 25 mmol/L (22-29); Chloride 105 mmol/L (98-107); Estimated GFR-MDRD 26; Glucose 136 mg/dL (70-105); Sodium 139 mmol/L (136-145)
[2018-08-11 08:14] LABS: Potassium 2.8 mmol/L (3.5-5.1)
[2018-08-11] MEDS: Enoxaparin Sodium 30 MG/0.3 ML SYRINGE SC SCH (08:28)
[2018-08-11] MEDS: Insulin Glargine 30 UNITS in Pre-Filled Syringe 1 EACH SC SCH (08:28)
[2018-08-11] MEDS: Polyethylene Glycol 3350 17 GM Packet PO SCH (08:28)
[2018-08-11] MEDS: Potassium Chloride 20 MEQ TAB PO SCH ×2 (08:51→13:44)
[2018-08-11 11:52] VITALS: BP 145/85; TEMP 97.8
--- NOTE | 2018-08-11 21:24 | CON ---
DATE OF CONSULTATION: 08/10/2018 CONSULTATION AND PROGRESS NOTE CHIEF COMPLAINT: 1. Urinary retention due to bladder outlet obstruction. 2. History of cervical cancer, status post hysterectomy with lymph node dissection and positive left inguinal lymph node around 2009. 3. Cigarette smoking, not in remission. 4. Right upper quadrant pain with gallstones, now status post cholecystectomy. 5. Apparent pyelonephritis. 6. Acute on probable chronic renal insufficiency. 7. Diabetes mellitus, type 2, insulin-dependent. BRIEF HISTORY: Ms. 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 She presented with bilateral hydronephrosis, hydroureter, full bladder, renal insufficiency, continuous urinary incontinence, history of diabetes mellitus, COPD with cigarette smoking, and right upper quadrant pain. During the hospitalization, we placed Coronel catheter with substantial reduction of the patient's bilateral hydronephrosis and hydroureter and increase in her urine production as well as some recovery of her renal insufficiency. The patient continued to have right upper quadrant pain due to presence of gallstones, underwent a laparoscopic cholecystectomy by Dr. Esparza yesterday. The patient reports doing reasonably well and has no incisional-related complaints except for pain at the incision sites. She continued to produce purulent urine, which is associated with bilateral pyelonephritis and cystitis secondary to bladder outlet obstruction. The patient has an indwelling Coronel catheter, which continues to drain urine. She did have a postobstructive diuresis and was managed appropriately with indwelling catheter for that. The patient reports today that she has gained some of her appetite back, which is new for her. Over the last 6 to 8 weeks, she has had relative anorexia and has lost about 20 pounds. PHYSICAL EXAMINATION: VITAL SIGNS: The patient is afebrile with current temperature of 97.6, pulse 82, respirations 18, O2 saturations 96% on room air, and her blood pressure is up to 141/84. HEAD, EYES, EARS, NOSE, AND THROAT: Extraocular movements are intact. Sclerae are anicteric. Oropharynx is clear. NECK: Supple. LUNGS: Clear to auscultation bilaterally. She does not have wheezing in the right lung as she did on my last exam. She does have some COPD-type changes present. She is a current cigarette smoker and a long-term cigarette smoker at up to 3 packs per day and has consistent findings on physical exam. CARDIAC: Regular rate and rhythm without murmur, rub, or gallop. ABDOMEN: Soft, obese, and nontender. There are new laparoscopic-associated scars on the right upper quadrant and umbilicus areas. The patient reports normal incisional discomfort associated with those. She reports no back pain. Physical examination finds no flank discomfort. PELVIC: Deferred. An indwelling Coronel catheter is in place and is draining predominantly straw-colored urine, but particulates which appeared to be white blood cell clumps are observed, consistent with the patient's diagnosis of cystitis and bilateral pyelonephritis. EXTREMITIES: Appear within normal limits. The patient is able to move all 4 extremities against gravity without difficulty. INTAKE AND OUTPUT SUMMARY: Shows the patient is still having excessive fluid outflows, which are now improved to near balance. LABORATORY DATA: Laboratory studies show the patient's white count down from 22,200 to 14,900 today, with still a left shift present, but the patient did have the surgery yesterday. The patient's electrolytes continued to improve. Potassium is up to 3.3 now, still in the low range. Creatinine remains elevated at 1.97, down from 2.65 at hospital admission. The patient has not yet had a magnesium test today, but it was 2.0 yesterday. RADIOLOGIC STUDIES: A secondary CT scan was performed on 08/09/2018, after placement of a Coronel catheter. This showed bilateral decompression in the patient' collecting system. Some residual contrast seen on the left side, this is opposite to the side the patient had the anterior abdominal pain on. There is sectoring observed on both kidneys suggesting the patient had a bilateral pyelonephritis. Bladder wall thickening remains consistent with probable cystitis, but the patient's cigarette smoking history needs to be considered. There are no enhancing lesions in the bladder wall. ASSESSMENT: 1. Acute on probable chronic renal insufficiency with multiple potential causes. There does not appear to be obstructive in the upper tract, rather obstructive at the bladder outlet is a cause. In addition, the patient's history of diabetes is recognized as well as complicated past medical history, which also may be a contributor. a. In this patient's case, nephrotoxic medications should be discontinued. This would include all NSAIDs including Toradol, ibuprofen, and naproxen. 2. Chronic pain syndrome secondary to multiple prior surgeries. I discussed with the patient that chronic ongoing narcotic medication therapy is not a good choice for a patient with chronic pain rather treating the chronic pain syndrome as appropriate. She is already started on [facility] using Neurontin. I would highly recommend this patient avoid narcotic pain medications. A limited course of Toradol postoperatively seems appropriate for the patient's gallbladder issue. In addition, due to her renal dysfunction, I would highly recommend avoiding NSAIDs including Toradol. 3. Urinary retention with bladder outlet obstruction, although voiding trial can be considering in this patient. This patient likely has urethral stricture disease, would be appropriate for urethral calibration in clinic. A voiding trial may be considered in the hospital; however, catheter removal and urethral dilation as well as instructions and self-intermittent catheterization can be performed as an outpatient. The patient has multiple potential causes for bladder outlet obstruction including inadequate bladder muscle tone secondary to neurologic changes caused by previous radical gynecologic surgery, lymph node dissection, and chemo as well as radiation therapy. Further, the patient does have relatively poorly controlled diabetes mellitus, which separately can cause neurologic dysfunction in the patient's bladder. This patient needs aggressive instruction in intermittent catheterization, and this can be performed in an outpatient setting in my office. I am recommending that the patient follow up in my office for a voiding trial and cystoscopy with urethral calibration within 1 week's time. She will also undergo instruction for intermittent self-catheterization there. 4. Pyelonephritis and ID concerns. The patient has a urinary tract infection secondary to Klebsiella species. She has Klebsiella pneumoniae isolated from her urine. This is relatively pansensitive organism and would reflect the obstructive cause, that is essentially sensitive to all antibiotics except for ciprofloxacin or a cephalosporin such as Omnicef would seem appropriate for this patient. Bactrim is to be avoided due to the patient's renal insufficiency. I would recommend a long-term course, at least 14 days in this patient's case due to the bilateral pyelonephritis evident on the CT scan. 5. Gallstones, now status post cholecystectomy. The patient appears to be improving well. Dr. Esparza's input appreciated. Job ID: [id number]
--- NOTE | 2018-08-13 10:41 | DIS ---
DATE OF ADMISSION: 08/08/2018 DATE OF DISCHARGE: 08/11/2018 DISCHARGE DIAGNOSES: 1. Sepsis. 2. Urinary retention. 3. Urinary tract infection, growing Klebsiella. 4. Cholecystitis. 5. Hydronephrosis. 6. History of cervical cancer, status post chemotherapy and radiation surgery with lymph node excision. 7. Hypokalemia. 8. Hypomagnesemia. 9. Chronic pain syndrome. HISTORY OF PRESENT ILLNESS: The patient is a 47-year-old female who presented to the emergency department complaining of 6 weeks of illness with some generalized abdominal discomfort, nausea, and 20-pound weight loss. The patient underwent a CT scan initially in the emergency department, which revealed enlarged retroperitoneal lymph nodes, cholelithiasis without evidence of cholecystitis, severe bilateral hydronephrosis, and hydroureter with a distended bladder of mucosal prominence. The patient had a Coronel catheter placed, draining approximately 750 mL of urine at that time. The patient had a white count of 22,000 and was felt to fit in the clinical picture of sepsis with urinalysis consistent with urinary tract infection. HOSPITAL COURSE: The patient was admitted to the hospital with a Coronel catheter in place and started on broad-spectrum antibiotics and fluids. She had consultation by Urology. She also had a consultation by Surgery because of right upper quadrant tenderness. It was felt the patient likely had cholelithiasis with cholecystitis and a cholecystectomy was planned. The patient underwent cholecystectomy the following day. She did well postoperatively and was able to eat and drink again. Her urine culture grew Klebsiella, which was generally sensitive. Discussed with the on-call urologist and it was felt the patient could have a voiding trial, therefore her Coronel catheter was discontinued. The patient voided well, had minimal residual, and was felt to be stable without the Coronel catheter. The patient was also counseled regarding the lymph node findings, none of which were overly alarming and could be related to infection, but she did need to have follow up with local providers. The patient had all of her care in the [facility] [facility] and had not reestablished with providers locally nor had she had any followup on her history of cervical cancer for 3 years. She did have a local PCP and could get plugged into appropriate followup as an outpatient. PHYSICAL EXAMINATION: VITAL SIGNS: On the day of discharge, temperature 97.8, pulse 78, respirations 16, O2 saturation 96% on room air, BP 145/85. GENERAL APPEARANCE: Age-appropriate female. She was in no distress. HEART: Regular rate and rhythm without murmurs, gallops, or rubs. LUNGS: Clear to auscultation bilaterally with good chest wall expansion and air exchange. ABDOMEN: Soft, nontender, and nondistended. Positive bowel sounds. No masses. No organomegaly. EXTREMITIES: Warm and dry without tenderness or edema. DISPOSITION: The patient is discharged to home. DIET: She will be on ciprofloxacin 500 mg one p.o. b.i.d., ibuprofen q.6 hours p.r.n. She will continue with her Neurontin 100 mg b.i.d., atorvastatin 10 mg at bedtime, albuterol inhaler p.r.n., metformin 500 mg b.i.d. with meals, losartan 50 mg daily, fluticasone inhaler 50 mcg daily, Humalog 14 units subcu at bedtime, Soliqua 55 units subcu daily, [place] 10/325 t.i.d. p.r.n. ACTIVITY: She is to have an activity level as tolerated. She is instructed not to lift over more than 10 pounds for 1 month, and she is on a diabetic diet. She is to follow up with Dr. Chip Esparza, Dr. Octavio Ng and Dr. Anna Munson in 1 week. She can return to the hospital should she have any problems prior to that time. Job ID: [id number] [id number]
== END 2018-08-11 15:09 | disposition home or self-care (01) | DRG 854 ==
LOC: ERS 08:24 → T4-B 14:57
PROVIDERS: ADMIT Internal Medicine; ATTEND Internal Medicine
PROC: 0FT44ZZ Resection of Gallbladder, Percutaneous Endoscopic Approach (ICD-10-PCS; principal; 2018-08-09)
DX: A41.9 Sepsis, unspecified organism (principal); K80.10 Calculus of gallbladder with chronic cholecystitis without obstruction; N39.0 Urinary tract infection, site not specified; N13.30 Unspecified hydronephrosis; F17.210 Nicotine dependence, cigarettes, uncomplicated; E11.9 Type 2 diabetes mellitus without complications; I10 Essential (primary) hypertension; E78.5 Hyperlipidemia, unspecified; J44.9 Chronic obstructive pulmonary disease, unspecified; E88.81 Metabolic syndrome and other insulin resistance; E66.9 Obesity, unspecified; Z68.33 Body mass index [BMI] 33.0-33.9, adult; R33.9 Retention of urine, unspecified; N32.0 Bladder-neck obstruction; E87.6 Hypokalemia; E83.42 Hypomagnesemia; B96.1 Klebsiella pneumoniae [K. pneumoniae] as the cause of diseases classified elsewhere; G89.4 Chronic pain syndrome; Z79.4 Long term (current) use of insulin; Z85.41 Personal history of malignant neoplasm of cervix uteri; Z82.49 Family history of ischemic heart disease and other diseases of the circulatory system; Z83.3 Family history of diabetes mellitus
CPT/HCPCS: 36415; 36416; 74176; 74177; 80048; 80053; 81003; 81015; 83605; 83690; 83735; 85025; 87040; 87077; 87086; 87186; 88304; 90471; 90686; 90732; 93005; G0008; G0009; J0131; J0670; J0696; J1170; J1650; J1815; J1885; J2001; J2250; J2405; J2550; J2704; J2765; J3010; J3475; J3480; J3490; J7050

== ENCOUNTER 2018-08-15 11:47 | Emergency (ER) | payer BC, SELFPAY ==
[2018-08-15] MEDS ORDERED: Ondansetron ODT 8 MG TAB ONE (13:31)
== END 2018-08-15 14:15 | disposition home or self-care (01) ==
LOC: ERS 11:47
DX: R11.2 Nausea with vomiting, unspecified (principal); E11.9 Type 2 diabetes mellitus without complications; I10 Essential (primary) hypertension; F17.210 Nicotine dependence, cigarettes, uncomplicated; Z79.899 Other long term (current) drug therapy
CPT/HCPCS: 99283